=== PATIENT | female | born 1980 | race American Indian/Alaskan Native ===

== ENCOUNTER 2022-03-12 08:23 | Emergency (ER) | payer BC ==
[2022-03-12 08:46] VITALS: BP 166/100
[2022-03-12] MEDS ORDERED: oxyCODONE /ACETAMINOPHEN 5-325MG TAB PO ONE (13:56)
--- NOTE | 2022-03-12 14:49 | Emergency Department Report ---
ED ENT HPI - General Chief complaint: Dental/Oral Stated complaint: PAIN IN LFT EAR/ Time Seen by Provider: 03/12/22 13:09 Source: patient Mode of arrival: Ambulatory Limitations: No Limitations - History of Present Illness MD complaint: tooth pain -: Gradual, days(s) (5) Location: tooth # 1 - Pain to this region Severity: moderate Quality: aching, sharp Consistency: constant Improves with: none Worsens with: none, eating Context- Dental: history of dental caries, poor dental care - Related Data Previous Rx's Medication Instructions Recorded Last Taken Type Amoxicillin [Amoxicillin TAB] 875 mg PO BID #20 tablet 03/12/22 Unknown Rx Chlorhexidine Mouthwash [Peridex] 15 ml MM BID #1 bottle 03/12/22 Unknown Rx Lidocaine Viscous 2% 5 ml MM Q3H PRN #120 ud 03/12/22 Unknown Rx Allergies Allergy/AdvReac Type Severity Reaction Status Date / Time No Known Allergies Allergy Unverified 03/12/22 08:43 ED Dental HPI - General Chief complaint: Dental/Oral Stated complaint: PAIN IN LFT EAR/ Time Seen by Provider: 03/12/22 13:09 Source: patient Mode of arrival: Ambulatory Limitations: No Limitations - Related Data Previous Rx's Medication Instructions Recorded Last Taken Type Amoxicillin [Amoxicillin TAB] 875 mg PO BID #20 tablet 03/12/22 Unknown Rx Chlorhexidine Mouthwash [Peridex] 15 ml MM BID #1 bottle 03/12/22 Unknown Rx Lidocaine Viscous 2% 5 ml MM Q3H PRN #120 udc 03/12/22 Unknown Rx Allergies Allergy/AdvReac Type Severity Reaction Status Date / Time No Known Allergies Allergy Unverified 03/12/22 08:43 ED Review of Systems ROS: Stated complaint: PAIN IN LFT EAR/ Other details as noted in HPI Comment: All other systems reviewed and negative ED Past Medical Hx - Past Medical History Previous Medical History?: Yes Additional medical history: anemia/low iron - Surgical History Past Surgical History?: Yes Additional Surgical History: Tubaligation - Medications Home Medications: Home Medications Medication Instructions Recorded Confirmed Last Taken Type Amoxicillin [Amoxicillin TAB] 875 mg PO BID #20 tablet 03/12/22 Unknown Rx Chlorhexidine Mouthwash [Peridex] 15 ml MM BID #1 bottle 03/12/22 Unknown Rx Lidocaine Viscous 2% 5 ml MM Q3H PRN #120 udc 03/12/22 Unknown Rx ED Physical Exam - General Limitations: No Limitations General appearance: alert, in no apparent distress - Head Head exam: Present: atraumatic, normocephalic - Eye Eye exam: Present: normal appearance - ENT ENT exam: Present: mucous membranes moist, TM's normal bilaterally, normal e xternal ear exam, other (Partial exam there is some tenderness to the molar region with some adjacent gingival swelling and erythema. No discharge or bleeding is present) - Neck Neck exam: Present: normal inspection - Respiratory Respiratory exam: Present: normal lung sounds bilaterally. Absent: respiratory distress - Cardiovascular Cardiovascular Exam: Present: regular rate, normal rhythm. Absent: systolic murmur, diastolic murmur, rubs, gallop - GI/Abdominal GI/Abdominal exam: Present: soft, normal bowel sounds - Extremities Exam Extremities exam: Present: normal inspection - Back Exam Back exam: Present: normal inspection - Neurological Exam Neurological exam: Present: alert, oriented X3 - Psychiatric Psychiatric exam: Present: normal affect, normal mood - Skin Skin exam: Present: warm, dry, intact, normal color. Absent: rash ED Course Vital Signs 03/12/22 08:45 Temperature 98.5 F Pulse Rate 89 Respiratory 16 Rate Blood Pressure 166/100 O2 Sat by Pulse 100 Oximetry Critical care attestation.: If time is entered above; I have spent that time in minutes in the direct care of this critically ill patient, excluding procedure time. ED Disposition Clinical Impression: Infected dental caries Disposition: HOME / SELF CARE / HOMELESS Is pt being admited?: No Does the pt Need Aspirin: No Condition: Stable Prescriptions: Amoxicillin [Amoxicillin TAB] 875 mg PO BID #20 tablet Lidocaine Viscous 2% 5 ml MM Q3H PRN #120 udc PRN Reason: Pain, Moderate (4-6) Chlorhexidine Mouthwash [Peridex] 15 ml MM BID #1 bottle Referrals: [facility] [Outside] - 3-5 Days ALVIN WATERS MD [Primary Care Provider] - 3-5 Days
== END 2022-03-12 14:57 | disposition home or self-care (01) ==
LOC: ED 08:23
DX: K02.9 Dental caries, unspecified (principal)
CPT/HCPCS: 99282